=== PATIENT | male | born 2000 | race Hispanic/Latino ===

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

== ENCOUNTER 2021-02-11 10:21 | Emergency (ER) | payer SELFPAY ==
[~2021-02-11] VITALS: Ht 172 cm; Wt 75.0 kg
[~2021-02-11 10:21] MED LIST changes: +PROPOFOL DRIP (ICU) 100 ML IV ONE
[2021-02-11] MEDS ORDERED: SUCCINYLCHOLINE INJ 100 MG/5 ML SYR/VIAL INJ ONE (10:24)
[2021-02-11] MEDS ORDERED: fentaNYL INJ 100 MCG/2 ML AMP IV ONE (10:24)
[2021-02-11] MEDS ORDERED: MIDAZOLAM 5 MG/5 ML (VERSED) VIAL INJ ONE (10:24)
[2021-02-11] MEDS ORDERED: ETOMIDATE IV SOLN 20 MG/10 ML VIAL IV ONE (10:24)
[2021-02-11] MEDS ORDERED: TRANEXAMIC ACID 100 MG/ML 10 ML INJECTION ONE ×2 (10:28→10:58)
[2021-02-11] MEDS ORDERED: NS (IVPB) 50 ML ONE (10:28)
[2021-02-11] MEDS ORDERED: LORazepam INJ 2 MG/ML (ATIVAN) VIAL ONE (10:41)
[2021-02-11] MEDS ORDERED: NS (IVPB) 250 ML ONE (10:58)
[2021-02-11] MEDS ORDERED: PROPOFOL DRIP (ICU) 100 ML IV ONE (11:07)
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
[2021-02-11 11:28] VITALS: BP 143/73
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
== END 2021-02-11 11:28 | disposition short-term general hospital (02) ==
LOC: EDUNIT# 10:21 → ER 10:23
DX: S01.83XA Puncture wound without foreign body of other part of head, initial encounter (principal); R56.9 Unspecified convulsions; Z87.891 Personal history of nicotine dependence
CPT/HCPCS: 31500; 51702; 99291; G0390

== ENCOUNTER 2021-07-18 22:22 | Emergency (ER) | payer MEDICAID, OTHER ==
[~2021-07-18] VITALS: Ht 175 cm; Wt 61.0 kg
[~2021-07-18 22:22] MED LIST changes: -PROPOFOL DRIP (ICU) 100 ML IV ONE
[2021-07-18] MEDS ORDERED: TETRACAINE 0.5% OPHTH SOLN 4 ML BTL (SINGLE DOSE ONLY) OU ONE (22:45)
[2021-07-18] MEDS ORDERED: FLUORESCEIN (FLUOR-I-STRIPS) 1 MG STRP OU ONE (22:45)
[2021-07-18] MEDS: BSS 15 ML IR ONE ×2 (22:50→23:27)
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
[2021-07-18] MEDS ORDERED: ERYTHROMYCIN OPHTH OINT 1 GM (SINGLE USE) TUBE ONE (23:05)
[2021-07-18] MEDS: ERYTHROMYCIN OPHTH OINT 1 GM (SINGLE USE) TUBE OP SCH ×2 (23:11→23:13)
[2021-07-18 23:25] VITALS: BP 143/80
== END 2021-07-18 23:25 | disposition home or self-care (01) ==
LOC: EDUNIT# 22:22 → ER 22:26
DX: H16.133 Photokeratitis, bilateral (principal); F17.210 Nicotine dependence, cigarettes, uncomplicated; Z87.820 Personal history of traumatic brain injury
CPT/HCPCS: 99284